=== PATIENT | female | born 1950 | race Caucasian/White ===

== ENCOUNTER → 2016-05-21 | Outpatient (CLI) | payer BC ==
[2016-05-21 12:13] LABS: Calcium 9.8 mg/dL (8.4-10.2)
== END | disposition home or self-care (01) ==
LOC: LABWHC1 08:33
PROVIDERS: ATTEND Family Medicine
DX: E03.9 Hypothyroidism, unspecified (principal)
CPT/HCPCS: 36415; 82310; 84439; 84443

== ENCOUNTER → 2016-05-21 | Outpatient (CLI) | payer BC ==
[2016-05-21 08:43] LABS: EKG EKG PERFORMED
[2016-05-21 09:27] LABS: Amorphous Sediment,Urine Rare /hpf; Appearance,Urine Cloudy (Clear); Bilirubin,Urine Negative (Negative); Glucose,Urine (UA) Negative (Negative); Ketones,Urine Negative (Negative); Leukocyte Esterase,Urine Negative (Negative); Mucus,Urine Rare /hpf; Nitrite,Urine Negative (Negative); Particle Count 7776; Protein,Urine Negative (Negative); RBC,Urine 5 /hpf (0-5); Specific Gravity,Urine 1.011 (1.001-1.035); Squamous Epithelial Cell,Urine <1 /hpf (0-4); UA Billing (MACRO vs. MICRO) MICRO; Urobilinogen,Urine <2.0 mg/dL (<2.0)
[2016-05-21 09:33] LABS: Partial Thromboplastin Time 24.8 sec (22.0-30.0); Prothrombin Time 9.9 sec (9.0-12.0)
[2016-05-21 09:37] LABS: Basophils % (A) 1 %; CH 30.9; CHCM 33.6; Eosinophils # (A) 0.2 k/uL (0-0.7); Eosinophils % (A) 4 %; HCT 40.1 % (34.0-46.0); HGB 13.2 gm/dL (11.4-16.0); Luc # (Auto) 0.18; Luc % (Auto) 4; Lymphocytes # (A) 1.7 k/uL (1.0-4.8); Lymphocytes % (A) 40 %; MCH 30.6 pg (25.0-35.0); MCV 92.6 fL (80.0-100.0); Mean Platelet Volume 6.8; Monocytes # (A) 0.4 k/uL (0-1.0); Monocytes % (A) 8 %; Neutrophils # (A) 1.9 k/uL (1.3-7.7); Neutrophils % (A) 43 %; RBC 4.33 m/uL (3.80-5.40); RDW 12.8 % (11.5-15.5); WBC 4.3 k/uL (3.8-10.6); WBC (Perox) 4.49
[2016-05-21 09:46] LABS: ALT 45 U/L (9-52); AST 27 U/L (14-36); Alkaline Phosphatase 68 U/L (38-126); Anion Gap 3 mmol/L; Blood Urea Nitrogen 14 mg/dL (7-17); Calcium 9.7 mg/dL (8.4-10.2); Carbon Dioxide 27 mmol/L (22-30); Chloride 105 mmol/L (98-107); Glucose 87 mg/dL (74-99); Non-African American GFR(MDRD) >60 (>60 ml/min/1.73 sqM); Potassium 4.7 mmol/L (3.5-5.1); Sodium 135 mmol/L (137-145); Total Bilirubin 0.7 mg/dL (0.2-1.3)
== END | disposition home or self-care (01) ==
LOC: LABPAT 08:30
PROVIDERS: ATTEND Orthopaedic Surgery
DX: Z01.810 Encounter for preprocedural cardiovascular examination (principal); Z01.812 Encounter for preprocedural laboratory examination
CPT/HCPCS: 36415; 80053; 81001; 85025; 85610; 85730; 87070; 93005

== ENCOUNTER 2016-06-04 09:04 | Inpatient (IN) | payer BC, OTHER ==
[2016-06-01 08:32] VITALS: BMI 30.2
[~2016-06-04 09:04] MED LIST: ACETAMINOPHEN TAB 500 MG TAB PO ONE; DEXAMETHASONE SOD PHOSPHATE 10 MG/ML 1 ML VIAL IV ONE; HYDROmorphone 1 MG/ML 1 ML SYRINGE IVP PRN; LACTATED RINGERS 1,000 ML IV SCH; MELOXICAM 7.5 MG TAB PO ONE; MIDAZOLAM 2 MG/2 ML VIAL IV PRN; ONDANSETRON 4 MG/2 ML VIAL IVP ONE; TRANEXAMIC ACID 1,000 MG in SODIUM CHLORIDE 0.9% 100 ML IVPB ONE; ceFAZolin 2 GM in SODIUM CHLORIDE 0.9% 100 ML IVPB ONE
[2016-06-04] MEDS ORDERED: LIDOCAINE 1% 20 ML VIAL (10MG/ML) FOR IV START INTRADERMA ONE (11:36)
[2016-06-04] MEDS ORDERED: ePHEDrine 50 MG/ML 1 ML AMP ONE (12:43)
[2016-06-04] MEDS ORDERED: MIDAZOLAM 2 MG/2 ML VIAL ONE (12:43)
[2016-06-04] MEDS ORDERED: ROCURONIUM BROMIDE 10 MG/ML 10 ML VIAL IV ONE (12:43)
[2016-06-04] MEDS ORDERED: SUCCINYLCHOLINE CHLORIDE 100 MG/5 ML SYR IV ONE (12:43)
[2016-06-04] MEDS ORDERED: HYDROmorphone (PF) 1 MG/ML ONE (12:43)
[2016-06-04] MEDS ORDERED: fentaNYL (PF) 50 MCG/ML 2 ML AMP ONE (12:43)
[2016-06-04] MEDS ORDERED: PROPOFOL 10 MG/ML 20 ML VIAL IV ONE (12:43)
[2016-06-04] MEDS: ROPIVACAINE 246.25 MG, EPINEPHrine 0.5 MG, KETOROLAC 30 MG, cloNIDine HCL/PF 80 MCG, WA... MISCELLANE ONE ×10 (13:51→14:46)
[2016-06-04] MEDS ORDERED: LACTATED RINGERS 1,000 ML IV ONE (13:52)
[2016-06-04] MEDS ORDERED: ceFAZolin 3,000 MG in SODIUM CHLORIDE 0.9% IRRIGATIO 3,000 ML IRRIGATION ONE (13:52)
[2016-06-04] MEDS ORDERED: ACETAMINOPHEN TAB 325 MG TAB PO PRN (15:32)
[2016-06-04] MEDS ORDERED: NALOXONE 0.4 MG/ML 1 ML VIAL IV PRN (15:32)
[2016-06-04] MEDS ORDERED: BISACODYL 10 MG SUPP RECTAL PRN (15:32)
[2016-06-04] MEDS ORDERED: NA PHOS,M-B/NA PHOS,DI-BA 133 ML ENEMA RECTAL PRN (15:32)
[2016-06-04] MEDS ORDERED: HYDROcodone/APAP 5-325MG 1 EACH TAB PO PRN (15:32)
[2016-06-04] MEDS ORDERED: MAGNESIUM HYDROXIDE 2,400 MG/10 ML CUP PO PRN (15:32)
[2016-06-04] MEDS ORDERED: HYDROmorphone 1 MG/ML 1 ML SYRINGE IVP PRN ×3 (15:32)
[2016-06-04] MEDS ORDERED: ONDANSETRON 4 MG/2 ML VIAL IVP PRN (15:32)
[2016-06-04] MEDS ORDERED: TEMAZEPAM 15 MG CAP PO PRN (15:32)
--- NOTE | 2016-06-04 16:17 | XR ---
EXAMINATION TYPE: XR knee limited LT DATE OF EXAM: 06/04/2016 4:05 PM COMPARISON: NONE HISTORY: Post knee replacement TECHNIQUE: 2 views left knee FINDINGS: Tibial and femoral components have been placed. Postsurgical changes are within soft tissue s. No acute fractures are evident. IMPRESSION: 1. No fractures post replacement.
[2016-06-04] MEDS: LACTATED RINGERS 1,000 ML IV SCH (17:08)
[2016-06-04] MEDS: HYDROcodone/APAP 5-325MG 1 EACH TAB PO PRN ×2 (17:57→23:19)
[2016-06-04] MEDS: hydrOXYzine PAMOATE 25 MG CAP PO PRN ×2 (17:58→23:20)
[2016-06-04] MEDS ORDERED: WARFARIN 5 MG TAB PO ONE (18:00)
--- NOTE | 2016-06-04 18:05 | P.OP ---
Date of Procedure: 06/04/16 Procedure(s) Performed: PREOPERATIVE DIAGNOSIS: Left knee severe osteoarthritis with genu varum POSTOPERATIVE DIAGNOSIS: Left knee severe osteoarthritis with genu varum OPERATION: Left knee cemented total replacement arthroplasty. ANESTHESIA: Spinal ESTIMATED BLOOD LOSS: 100 ml. CONFIGURATION MANAGEMENT ADVISOR: Darlin Adair PA-C (assistance with: patient positioning, retraction, exposure, hemostasis, leg positioning, implantation, irrigation, closure, dressing) COMPLICATIONS: None apparent. COMPONENTS IMPLANTED: Persona system from [employer] INDICATIONS: Mrs. Ceja is a 65-year-old female with a history of knee osteoarthritis. The operation of knee replacement has been discussed at length in the office, as well as potential risks and complications. These are inclusive of, but not limited to: bleeding, infection, scarring, discomfort, blood vessel and nerve damage, need for further surgery, failure to relieve symptoms, persistence, recurrence, or worsening of problems, loosening, dislocation, wear, blood clot, pulmonary embolism, , gait dysfunction, stiffness, and other risks as discussed in the office. The patient elects to proceed and the consent form has been signed. PROCEDURE: The patient was taken to the operating room and positioned on the operating room table in the supine position. Anesthesia was initiated. Care was taken to make sure that all pressure points were adequately padded. The operative lower extremity was prepped and draped in the usual aseptic fashion using DuraPrep. Ioban drape was used for the case and the patient received intravenous antibiotics within one hour of the incision. A pneumotourniquet and leg landin were used for the case. The limb was exsanguinated with an Esmarch bandage and the tourniquet was inflated to 300 mmHg. Time-out was called confirming the patient's identity, side, procedure and administration of antibiotics. The incision was then created midline directly over the knee, carried down through skin and into the subcutaneous tissues and down to fascia. Full thickness subcutaneous medial flap was developed. Medial parapatellar arthrotomy was performed and the interior of the knee was inspected. There was end-stage osteoarthritis of the knee with a severe genu varum type deformity. The fat pad was excised and proximal medial release on the tibia was completed using meticulous dissection and a curved osteotome. The anterior cruciate ligament was taken down. Note was made of significant attrition of the anterior and significant degenerative appearance of the posterior cruciate ligaments. The exposure was excellent. The knee was flexed 90 degrees and the patella was everted. A spot was chosen on the femur approximately 1 cm anterior to the posterior cruciate ligament insertion and an intramedullary hole was created within the femur. The intramedullary guide was then set to 5 degrees of valgus. The distal cutting block was attached and pinned into position. An appropriate amount of distal femoral resection was set. The oscillating saw was then used to make the distal femoral cut. This cut was confirmed to be flat with the flat end of an osteotome. The retractors were placed around the tibia and the tibial surface was addressed. The angle and depth of resection was adjusted using an extramedullary cutting guide. The guide had a built-in 3 degree posterior slope cut. Once the cutting guide was adjusted appropriately and in line with the axis of the tibia and confirmed to be in good position in relation to the second metatarsal and transmalleolar axis, the tibial cut was then created with protection of the posterior neurovascular structures and the collateral ligaments. The tibial cut surface was removed and sized. Femoral sizing was then accomplished using anterior referencing. Care was taken to analyze the posterior condyles for signs of deficiency or severe wear, and adjustments to the guide were made, as appropriate. 3 degree external rotation pins were placed. The cutting jig for the femur was applied to these pins. The planned cuts were further analyzed prior to performing them with the oscillating saw. No femoral notching was produced. Bone fragments were removed and the cut surfaces were finished, as necessary, with a reciprocating saw. Spacer block technique was then used to confirm that the flexion and extension gaps were equal. Soft tissue releases and adjustment of the tibial and/or femoral cuts were made, as necessary, until the gaps were equal. This included release of the posterior cruciate ligament, which was tight in this patient and , if left unreleased, would have resulted in poor kinematics and possibly early loosening. The femur was then further finished for a posterior cruciate ligament substituting component. Patellar resurfacing was performed using a reamer. The size of the required patellar component was estimated and the patellar surface was then reamed down to a residual thickness which would recreate the comanche thickness with the component. The placement of the patellar component was influenced by the degree of patellar subluxation, if any, noted on the preoperative x-rays. Prior to placing trial components, anesthetic solution consisting of ropivicaine with epinephrine, ketorolac, and clonidine was injected carefully and methodically in a grid pattern using aspiration technique into the soft tissue around the knee circumferentially, starting with the deeper tissues first and progressing to fascia, and then finally the skin/subcutaneous tissue. Particular care was taken when injecting the posterior capsule. The trial components were inserted. The tibial tray was allowed to self center and the patella was noted to track very well. The position of the tibial component was marked and the tibia was then finished for a stemmed tibial component. Cement was mixed on the back table and applied to the final components. Trial components were removed and the cut surfaces of the bone were pulse lavaged thoroughly and dried. Cement was then applied to the tibial surface and pressurized into the surface using finger pressurization technique. The tibial component was then applied and excess cement was removed after it was impacted securely and noted to be flush with the cut surface. In similar fashion, the cement was applied to the cut femoral surface, pressurized in using finger pressurization and the component was impacted into place. Excess cement was removed. The polyethylene spacer was then implanted and locked into position. The patellar component was then applied in similar technique and a patellar clamp was used to hold the patella in place as the cement hardened. Once the cement had fully hardened, the knee was reinspected. Any other cement extrusion was removed and final kinematic testing showed range of motion from 0 to 130 degrees with excellent stability, both medially and laterally and appropriate alignment of the leg. Patellar tracking was excellent. The knee was then thoroughly pulse lavaged with normal saline. The tourniquet was deflated and hemostasis was obtained with electrocautery and IV tranexamic acid, 1 g given prior to inflation of the tourniquet and another gram given at the time of closure. Closure was with #2 Ethibond in the fascia and supplemented with #2 Quill, 2-0 Vicryl suture was used for the subcutaneous tissues and 3-0 Quill for the skin. Dermabond/Steri-Strips were then applied. A lightly compressive dressing was applied using Webril and an Clark wrap. The patient was then transferred to stretcher and taken to the recovery room in stable condition. Sponge and needle counts were correct.
[2016-06-04] MEDS: ceFAZolin 2 GM in SODIUM CHLORIDE 0.9% 100 ML IVPB SCH (20:11)
[2016-06-04] MEDS: SENNOSIDES-DOCUSATE SODIUM 1 EACH TAB PO SCH (20:11)
[2016-06-05] MEDS: ceFAZolin 2 GM in SODIUM CHLORIDE 0.9% 100 ML IVPB SCH (05:22)
[2016-06-05] MEDS: hydrOXYzine PAMOATE 25 MG CAP PO PRN ×3 (05:24→20:41)
[2016-06-05] MEDS: HYDROcodone/APAP 5-325MG 1 EACH TAB PO PRN ×3 (05:24→20:40)
[2016-06-05] MEDS: LACTATED RINGERS 1,000 ML IV SCH ×2 (05:37→17:33)
[2016-06-05] MEDS: LEVOTHYROXINE 88 MCG TAB PO SCH ×2 (06:09)
[2016-06-05 06:47] LABS: Basophils % (A) 0 %; CH 30.8; CHCM 33.4; Eosinophils % (A) 0 %; HDW 2.43; HGB 11.2 gm/dL (11.4-16.0); Luc # (Auto) 0.14; Luc % (Auto) 1; Lymphocytes # (A) 1.2 k/uL (1.0-4.8); Lymphocytes % (A) 8 %; MCH 30.4 pg (25.0-35.0); MCHC 32.9 g/dL (31.0-37.0); MCV 92.6 fL (80.0-100.0); Mean Platelet Volume 6.4; Monocytes # (A) 0.8 k/uL (0-1.0); Monocytes % (A) 5 %; Neutrophils # (A) 13.1 k/uL (1.3-7.7); Neutrophils % (A) 86 %; RBC 3.67 m/uL (3.80-5.40); RDW 12.7 % (11.5-15.5); WBC 15.2 k/uL (3.8-10.6); WBC (Perox) 15.65
[2016-06-05 06:50] LABS: INR 1.2 (<1.1); Prothrombin Time 12.1 sec (9.0-12.0)
[2016-06-05] MEDS: MELOXICAM 7.5 MG TAB PO SCH (08:06)
[2016-06-05] MEDS: CHOLECALCIFEROL 1,000 UNIT TAB PO SCH (08:07)
[2016-06-05] MEDS ORDERED: LEVOTHYROXINE 88 MCG TAB PO SCH (09:00)
--- NOTE | 2016-06-05 09:04 | P.PN ---
Subjective Principal diagnosis: Left total knee arthroplasty Patient is pleasant 65-year-old female seen at bedside this morning. She's postop day #1 from left total knee arthroplasty performed by Dr. Lopez. She's doing well today other than some discomfort at the surgical site as expected and some episodes of hypotension. She is denying calf pain, numbness, tingling. Review of systems is negative for fever, chills, chest pain, shortness breath, cough, nausea, vomiting, slurred speech or other. Objective - Vital Signs Vital signs: Vital Signs Temp 97.6 F 06/05/16 02:04 Pulse 69 06/05/16 02:04 Resp 16 06/05/16 02:04 BP 88/47 06/05/16 07:00 Pulse Ox 92 L 06/05/16 02:04 Intake & Output 06/04/16 06/05/16 06/05/16 18:59 06:59 18:59 Intake Total 2601 800 Output Total 100 Balance 2501 800 Weight 84.82 kg Intake: IV 1801 Oral 800 800 Output: Estimated Blood Loss 100 Other: Voiding Method Toilet Toilet # Voids 1 - Exam Inspection of left lower extremity reveals a benign surgical wound. There is no active bleeding, dehiscence or drainage. Neurovascular status intact with active motor and sensation to light touch is intact throughout the left lower extremity. Calf is soft and nontender. 2+ dorsalis pedis pulses and less than 2 second cap refill is present. - Constitutional General appearance: Present: no acute distress - Psychiatric Psychiatric: Present: A&O x's 3, appropriate affect, intact judgment & insight - Labs CBC & Chem 7: 06/05/16 06:13 Labs: Abnormal Lab Results - Last 24 Hours (Table) 06/05/16 06/05/16 Range/Units 06:13 06:13 WBC 15.2 H (3.8-10.6) k/uL RBC 3.67 L (3.80-5.40) m/uL Hgb 11.2 L (11.4-16.0) gm/dL Neutrophils # 13.1 H (1.3-7.7) k/uL PT 12.1 H (9.0-12.0) sec Assessment and Plan (1) Osteoarthritis of left knee Narrative/Plan: She will continue with routine postop orthopedic protocol including pain management, wound care, physical therapy, DVT prophylaxis and medical management. She had some episodes of hypotension which she is currently stable. Expect that she'll discharge to home with home health tomorrow, 2016 Status: Acute Time with Patient: Less than 30
[2016-06-05] MEDS ORDERED: DOCUSATE 100 MG CAP PO PRN (10:54)
--- NOTE | 2016-06-05 11:55 | CONS ---
DATE OF CONSULTATION: 06/05/2016 REASON FOR CONSULTATION: Medical management requested by Dr. Lopez. CONSULTATION: This is a pleasant 65-year-old patient of Dr. Vance who has undergone a left total knee arthroplasty. The patient also has got osteoarthritis in the shoulder, rotator cuff and also got a hypothyroid. POST PROCEDURE: No nausea, vomiting, or chest pain. REVIEW OF SYSTEMS: CONSTITUTIONAL: None. HEENT: None. RESPIRATORY: None. CARDIOVASCULAR: None. GASTROINTESTINAL: None. GENITOURINARY: None. MUSCULOSKELETAL: Pain in the right shoulder also. DERMATOLOGIC: None. HEMATOLOGIC: None. LYMPHATIC: None. PSYCHIATRY: None. NEUROLOGICAL: None. PAST MEDICAL HISTORY: Osteoarthritis, hypothyroid. PAST SURGICAL HISTORY: Joint replacement, tubal ligation, right knee replaced. SOCIAL HISTORY: No smoking. Alcohol rarely. . Family history of DVT. HOME MEDICATIONS: Coumadin, vitamin B complex 1 capsule p.o. daily, Centrum Silver 1 tablet p.o. daily, Synthroid 88 mcg a day, Motrin 800 mg p.o. q.6 p.r.n., Colace 100 mg daily p.r.n., vitamin D3 two thousand units p.o. daily, Coumadin, Senokot-S 1 tablet p.o. b.i.d., [place] 5 one to two tablets q.4 p.r.n. ALLERGIES: TETRACYCLINE, ZINC. On examination, temperature 97.6, pulse 69, respirations 18, blood pressure 92/46, pulse ox 92% on room air. Repeat blood pressures go down to 88/42. GENERAL APPEARANCE: Well built, BMI 30.2, sitting up, comfortable. EYES: Pupils equal, conjunctivae normal. HEENT: Oral cavity normal. NECK: JVD not raised. Mass not palpable. Respiratory effort normal. LUNGS: Fair air entry. CARDIOVASCULAR: First and second sounds normal. No edema. ABDOMEN: Soft, nontender. Liver and spleen not palpable. LYMPHATIC: No lymph node palpable neck or axillae. PSYCHIATRY: Alert and oriented x3. Mood and affect normal. NEUROLOGICAL: Pupils equal. Cranial nerves grossly intact. Power and sensation grossly intact. INVESTIGATIONS: White count 15.2, hemoglobin 11.2. ASSESSMENT: 1. Postoperative hypotension from blood loss as expected from surgery. 2. Normocytic anemia with blood loss as expected from surgery. 3. Leukocytosis, reactive from surgery. No clinical evidence of infection. 4. Hypothyroidism. PLAN: Patient's medication getting for DVT prophylaxis. Pain is controlled. Blood pressure is running on the lower side. Will give the patient IV fluids. Care was discussed with the patient.
[2016-06-05] MEDS: MULTIVITAMINS, THERA 1 EACH TAB PO SCH (13:40)
[2016-06-05] MEDS ORDERED: WARFARIN 7.5 MG TAB PO ONE (18:00)
[2016-06-05] MEDS: SENNOSIDES-DOCUSATE SODIUM 1 EACH TAB PO SCH (20:41)
[2016-06-06] MEDS: LACTATED RINGERS 1,000 ML IV SCH ×2 (01:48→03:29)
[2016-06-06] MEDS: hydrOXYzine PAMOATE 25 MG CAP PO PRN ×3 (01:50→13:20)
[2016-06-06] MEDS: HYDROcodone/APAP 5-325MG 1 EACH TAB PO PRN ×3 (01:50→13:20)
[2016-06-06] MEDS: LEVOTHYROXINE 88 MCG TAB PO SCH (06:04)
[2016-06-06 07:24] LABS: INR 1.5 (<1.1); Prothrombin Time 14.4 sec (9.0-12.0)
[2016-06-06] MEDS: CHOLECALCIFEROL 1,000 UNIT TAB PO SCH (07:28)
[2016-06-06] MEDS: MELOXICAM 7.5 MG TAB PO SCH (07:28)
[2016-06-06 07:40] VITALS: BP 116/54; PULSE 56; RESP 18; TEMP 98
--- NOTE | 2016-06-06 08:32 | P.DS ---
Providers Date of admission: 06/04/16 10:56 Expected date of discharge: 06/06/16 Attending physician: Warner Lopez Consults: 06/04/16 15:32 Consult Physician Routine Consulting Provider: Parminder Carreno Consult Reason/Comments: medical management Do you want consulting provider notified?: Yes Primary care physician: Carlito Vance - Discharge Diagnosis(es) (1) Status post total left knee replacement Current Visit: Yes Status: Acute (2) Osteoarthritis of left knee Current Visit: Yes Status: Acute Priority: Medium Hospital Course: This is a 65-year-old female who was last seen with complaint of continued left knee pain. The patient has a known history of degenerative arthritis of the left knee and presents to discuss surgical options. After discussion and consideration the patient elects to proceed with total left knee arthroplasty. The patient is seen preoperatively by her family physician and cleared for surgery. The patient is admitted to [facility] for total left knee arthroplasty. The procedures performed without complication or sequelae. He is doing well postoperatively. Vital signs are stable at discharge. Labs are stable at discharge. the patient is ambulating well with walker with minimal assistance. The patient is discharged to home on postop day #2 pending medical clearance. Please see orders and refer to the [facility] rec for accurate list of medications. Plan - Discharge Summary New Discharge Prescriptions: HYDROcodone/APAP 5-325MG [[place] 5-325] 1 - 2 each PO Q4-6H PRN #90 tab PRN Reason: Pain Sennosides-Docusate Sodium [Senokot-S] 1 tab PO BID #60 tablet Warfarin [Coumadin] 2.5 mg PO DAILY #1 tab hydrOXYzine PAMOATE [Vistaril] 25 mg PO Q4-6H #30 capsule Discharge Medication List Cholecalciferol [Vitamin D3] 2,000 unit PO DAILY 06/01/16 [History] Docusate [Colace] 100 mg PO DAILY PRN 06/01/16 [History] Ibuprofen [Motrin] 800 mg PO Q6HR PRN 06/01/16 [History] Levothyroxine Sodium [Synthroid] 88 mcg PO DAILY 06/01/16 [History] Multivits-Min/Iron/FA/Lutein [Centrum Silver Women Tablet] 1 tab PO DAILY [History] Vitamin B Complex 1 cap PO DAILY 06/01/16 [History] HYDROcodone/APAP 5-325MG [[place] 5-325] 1 - 2 each PO Q4-6H PRN #90 tab 06/04/16 [Rx] Sennosides-Docusate Sodium [Senokot-S] 1 tab PO BID #60 tablet 06/04/16 [Rx] Warfarin [Coumadin] 2.5 mg PO DAILY 06/04/16 [History] Warfarin [Coumadin] 2.5 mg PO DAILY #1 tab 06/04/16 [Rx] Warfarin [Coumadin] 7.5 tab PO ONCE 06/04/16 [History] hydrOXYzine PAMOATE [Vistaril] 25 mg PO Q4-6H #30 capsule 06/04/16 [Rx] Follow up Appointment(s)/Referral(s): Darlin Adair, PAC [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 May shower if no drainage from incision. CPM 5-6h daily. Discharge Disposition: HOME WITH HOME HEALTH SERVICES
[2016-06-06] MEDS: MULTIVITAMINS, THERA 1 EACH TAB PO SCH (13:24)
--- NOTE | 2016-06-07 07:30 | PN ---
DATE OF SERVICE: 06/06/2016 PRESENTING COMPLAINT: Left knee surgery. INTERVAL HISTORY: This patient was seen by me earlier today. Status post left knee surgery. Pain is better controlled. No chest pain, shortness of breath, nausea or vomiting. Did tolerate diet. Did work with physical therapy. Doing better. Review of systems done for constitutional, cardiovascular, GI, pulmonary; relevant findings as above. Current medications are reviewed. On examination, temperature 98, pulse 56, respirations 18, blood pressure 116/54, pulse ox 99% on room air. GENERAL APPEARANCE: Lying in bed, comfortable. EYES: Pupils equal. Conjunctivae normal. NECK: JVD not raised. Mass not palpable. RESPIRATORY: Effort normal. Lungs are clear. CARDIOVASCULAR: First and second sounds normal. No edema. ABDOMEN: Soft, nontender. Liver and spleen not palpable. PSYCHIATRY: Alert and oriented x3. Mood and affect normal. INVESTIGATIONS: INR is noted. ASSESSMENT: 1. Postoperative hypotension from blood loss expected from surgery, improved. 2. Normocytic anemia from blood loss as expected from surgery. 3. Leukocytosis reactive from surgery. No clinical evidence of infection. 4. Hypothyroidism. PLAN: Patient is doing well. Continue current medication and treatment plan. Will follow.
== END 2016-06-06 14:37 | disposition home health service (06) | DRG 470 ==
LOC: 2ORMAIN 10:56 → 3SUR 16:14
PROVIDERS: ADMIT Orthopaedic Surgery; ATTEND Orthopaedic Surgery
PROC: 0SRD0J9 Replacement of Left Knee Joint with Synthetic Substitute, Cemented, Open Approach (ICD-10-PCS; principal; 2016-06-04 12:30)
DX: M17.12 Unilateral primary osteoarthritis, left knee (principal); E03.9 Hypothyroidism, unspecified; D72.829 Elevated white blood cell count, unspecified; D50.0 Iron deficiency anemia secondary to blood loss (chronic); M21.162 Varus deformity, not elsewhere classified, left knee; M79.4 Hypertrophy of (infrapatellar) fat pad; M71.22 Synovial cyst of popliteal space [Baker], left knee; M72.2 Plantar fascial fibromatosis; I95.81 Postprocedural hypotension; M75.101 Unspecified rotator cuff tear or rupture of right shoulder, not specified as traumatic; M19.011 Primary osteoarthritis, right shoulder; E78.00 Pure hypercholesterolemia, unspecified; J45.909 Unspecified asthma, uncomplicated; Z86.11 Personal history of tuberculosis; Z86.19 Personal history of other infectious and parasitic diseases; Z87.81 Personal history of (healed) traumatic fracture; Z79.01 Long term (current) use of anticoagulants; Z79.1 Long term (current) use of non-steroidal anti-inflammatories (NSAID); Z79.891 Long term (current) use of opiate analgesic; Z79.899 Other long term (current) drug therapy; Z98.51 Tubal ligation status; Z90.710 Acquired absence of both cervix and uterus; Z90.722 Acquired absence of ovaries, bilateral; Z90.79 Acquired absence of other genital organ(s); Z82.49 Family history of ischemic heart disease and other diseases of the circulatory system; Z88.1 Allergy status to other antibiotic agents; Z88.8 Allergy status to other drugs, medicaments and biological substances; Z96.651 Presence of right artificial knee joint; Z82.5 Family history of asthma and other chronic lower respiratory diseases
CPT/HCPCS: 85025; 85610; 88300

== ENCOUNTER → 2017-05-22 | Outpatient (CLI) | payer OTHER ==
--- NOTE | 2017-05-22 10:02 | WWHP ---
[facility] - HISTORY AND PHYSICAL DATE OF SERVICE: 05/22/2017 CHIEF COMPLAINT: The patient is here for her routine gynecologic exam and mammogram. HPI: This is a 66-year-old G4, P4-0-0-2 with an LMP of 1999. The patient is here to establish with this office. It has been more than 4 years since her last pelvic exam. She is without gynecologic complaints and denies any postmenopausal bleeding. PAST MEDICAL HISTORY: Hypothyroidism. She was treated for tuberculosis in 1959 and has some osteoarthritis of the knees. MEDICATIONS: 1. Motrin 800 mg b.i.d. p.r.n. 2. Synthroid 88 mcg daily. 3. Vitamin D 2000 units daily. 4. Vitamin B complex 1 daily. 5. Centrum Silver multivitamin 1 daily. ALLERGIES: Allergies to ZINC METAL when it touches the skin. There are no known drug allergies. PAST SURGICAL HISTORY: Tonsillectomy at age 6, tubal ligation 1985, knee replacement surgery in 2009 and the other knee done in 2016, D and C in the past. PAST OB HISTORY: Four vaginal deliveries at term. PAST [employer]TH COURT JUDGE HISTORY: She has been menopausal since 1999 and was once told she had a uterine fibroid. She has no history of STDs. SOCIAL HISTORY: She denies tobacco and drug use and has about 4 alcohol-containing drinks per month. 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 FAMILY HISTORY: Maternal grandfather had gastric cancer. Father had COPD and coronary artery disease. Brother has type 1 diabetes. REVIEW OF SYSTEMS: Weight has been stable. She denies respiratory, cardiac or GI problems. She denies maltreatment and falling. : She denies any significant problems with urinary leakage. PHYSICAL EXAM: Blood pressure 131/61, height 5 feet 5 inches, weight 182 pounds, temperature 96.8, pulse 58, BMI 30. This is a well-developed, well-nourished, white female, who is alert and oriented x3, in no acute distress. HEENT is within normal limits. NECK: Supple without mass or thyromegaly. CHEST AND LUNGS: Clear to auscultation. HEART: Regular rate and rhythm. Breasts are without mass or discharge. Axillary exam is negative for adenopathy. BACK: Negative for CVA tenderness. ABDOMEN: Soft, nontender, without palpable masses. PELVIC EXAM: External genitalia reveals [id number] atrophy without lesions. Cervix and vagina reveals [id number] atrophy without lesions. There is no evidence of prolapse. The uterus is mid-position and slightly retroverted and nongravid size. The uterus is nontender. There are no palpable adnexal masses or tenderness. Rectovaginal exam is negative for mass or tenderness and is negative for occult blood. EXTREMITIES: Nontender. IMPRESSION: A 66-year-old menopausal female with normal gynecologic exam. PLAN: 1. Pap smear was performed. 2. Self breast examination was discussed. 3. Mammogram will be done today. 4. Osteoporosis prevention was discussed and bone density screening will be done today. 5. She did receive a flu shot this past fall. 6. She will return in one year. MMODL / IJN: [id number] /
--- NOTE | 2017-05-22 11:14 | BD ---
EXAMINATION TYPE: MG DEXA axial skeleton. DATE OF EXAM: 05/22/2017 COMPARISON: 2007 CLINICAL HISTORY: screening Height: 5'3 Weight: 181 FRAX RISK QUESTIONS: Alcohol (3 or more units per day): no Family History (Parent hip fracture): no Glucocorticoids (More than 3mos): no (Ex: prednisone, prednisolone, methylprednisolone, dexamethasone, and hydrocortisone). History of Fracture in Adulthood: yes Secondary Osteoporosis: 1. Type 1 Diabetes: no 2. Hyperthyroidism: no 3. Menopause before 45: no 4. Malnutrition: no 5. Chronic liver disease: no Rheumatoid Arthritis: no Current Tobacco Use: no RISK FACTORS HISTORY OF: Postmenopausal woman: Lost more than 2 inches in height since high school: MEDICATIONS: Thyroid Medications: Which medication: Synthroid How Lon years Additional Medications: Motrin, Additional History: EXAM MEASUREMENTS: Bone mineral densitometry was performed using the [employer]ighter[employer] System. Bone mineral density as measured about the Lumbar spine is: ----- L1-L4(G/cm2): 1.176 T Score Values are as follows: ----- L2: -0.3 ----- L3: -0.3 ----- L4: 0.9 ----- L1-L4:0.0 Bone mineral density has: Decreased -4.8% since study of: 02/15/2003 Bone mineral density about the R hip (g/cm2): 0.815 Bone mineral density about the L hip (g/cm2): 0.791 T Score values are as follows: -----R Neck: -1.6 -----L Neck: -1.8 -----R Total: -1.4 -----L Total: -1.2 Bone mineral density has: Decreased -14.7% since study of: 02/15/2003 IMPRESSION: Osteopenia (T Score between -2.5 and -1). There is slightly increased risk of fracture and the patient may be considered for treatment. Re-Screen 2-5 years. NOTE: T-SCORE=SD OF THE YOUNG ADULT MEAN.
--- NOTE | 2017-05-23 13:03 | MM ---
Reason for exam: screening (asymptomatic). Last mammogram was performed 7 years and 5 months ago. History: Patient is postmenopausal. Physical Findings: A clinical breast exam by your physician is recommended on an annual basis and results should be correlated with mammographic findings. MG Screening Mammo w CAD Bilateral CC and MLO view(s) were taken. Prior study comparison: December 14, 2009, bilateral digital screening mammogram. May 10, 2008, bilateral digital screening mammogram. The breast tissue is heterogeneously dense. This may lower the sensitivity of mammography. There is no discrete abnormality. No significant changes when compared with prior studies. ASSESSMENT: Negative, BI-RAD 1 RECOMMENDATION: Routine screening mammogram of both breasts in 1 year.
== END | disposition home or self-care (01) ==
LOC: WWCWWP 08:44
PROVIDERS: ATTEND Obstetrics & Gynecology
DX: Z12.31 Encounter for screening mammogram for malignant neoplasm of breast (principal); M85.80 Other specified disorders of bone density and structure, unspecified site; Z78.0 Asymptomatic menopausal state
CPT/HCPCS: 77067; 77080

== ENCOUNTER 2018-12-02 11:27 | Emergency (ER) | payer BC, OTHER ==
[2018-12-02] MEDS ORDERED: IPRATROPIUM-ALBUTEROL 3 ML NEB INHALATION STA (11:57)
[2018-12-02] MEDS ORDERED: ACETAMINOPHEN TAB 500 MG TAB PO STA (11:58)
[2018-12-02] MEDS ORDERED: IBUPROFEN 800 MG TAB PO STA (11:58)
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
[2018-12-02 13:38] VITALS: BP 111/59; PULSE 65; RESP 17; TEMP 98.8
== END 2018-12-02 13:38 | disposition home or self-care (01) ==
LOC: EC 11:27
DX: S20.219A Contusion of unspecified front wall of thorax, initial encounter (principal); J20.9 Acute bronchitis, unspecified; M19.90 Unspecified osteoarthritis, unspecified site; E07.9 Disorder of thyroid, unspecified; Z88.1 Allergy status to other antibiotic agents; Z91.048 Other nonmedicinal substance allergy status; Z79.1 Long term (current) use of non-steroidal anti-inflammatories (NSAID); Z79.890 Hormone replacement therapy; Z79.899 Other long term (current) drug therapy; Z96.651 Presence of right artificial knee joint; Z87.09 Personal history of other diseases of the respiratory system; V49.49XA Driver injured in collision with other motor vehicles in traffic accident, initial encounter; W22.10XA Striking against or struck by unspecified automobile airbag, initial encounter; Y92.410 Unspecified street and highway as the place of occurrence of the external cause
CPT/HCPCS: 71046; 94640; 99284

== ENCOUNTER → 2019-06-02 | Outpatient (CLI) | payer BC ==
[2019-06-02 13:14] VITALS: BP 142/82; PULSE 62; RESP 18; TEMP 97.6
--- NOTE | 2019-06-02 13:45 | P.HPOB ---
History of Present Illness H&P Date: 06/02/19 Chief Complaint: The patient is here for her routine gynecologic exam and ma mmogram. This is a 68-year-old 002 with an LMP of 1999. The patient is complaining of some vaginal dryness with sexual intercourse. Inlk-ull-bbxgbnn lubricant was not helpful. She is otherwise without complaints and denies any postmenopausal bleeding. Review of Systems The patient has gained 10 pounds over the last 2 years. She denies respiratory, cardiac, or G.I. problems. 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 She was once told she had a uterine fibroid. History of Any Multi-Drug Resistant Organisms: None Reported Past Surgical History: Joint Replacement, Tonsillectomy, Tubal Ligation Additional Past Surgical History / Comment(s): right knee replaced Past Anesthesia/Blood Transfusion Reactions: No Reported Reaction Past Psychological History: No Psychological Hx Reported Smoking Status: Never smoker Past Alcohol Use History: Occasional (1 or 2 per month) Past Drug Use History: None Reported Additional History: She has been since 1973 and is sexually active. 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. - Past Family History Mother Family Medical History: Deep Vein Thrombosis (DVT) Additional Family Medical History / Comment(s): Maternal grandfather had gastric cancer. Father Family Medical History: COPD, Coronary Artery Disease (CAD) Brother(s) Family Medical History: Diabetes Mellitus Medications and Allergies Home Medications Medication Instructions Recorded Confirmed Type Cholecalciferol [Vitamin D3] 2,000 unit PO DAILY 06/01/16 06/02/19 History Levothyroxine Sodium [Synthroid] 88 mcg PO DAILY 06/01/16 06/02/19 History Multivit-Min/Iron/Folic/Lutein 1 tab PO DAILY 06/01/16 06/02/19 History [Centrum Silver Women Tablet] Vitamin B Complex 1 cap PO DAILY 06/01/16 06/02/19 History Albuterol Sulfate [Proair Hfa] 1 - 2 puff INHALATION Q4H PRN #1 12/02/18 06/02/19 Rx inhaler Ibuprofen [Motrin] 800 mg PO BID PRN 12/02/18 06/02/19 History Terbinafine [LamISIL] 250 mg PO DAILY 12/02/18 06/02/19 History Calcium/Magnesium/Zinc 1 each PO DAILY 06/02/19 06/02/19 History [Kjplddm-Wnrevfvru-Zvdu Tablet] Allergies Allergy/AdvReac Type Severity Reaction Status Date / Time Tetracyclines AdvReac always Verified 06/02/19 13:09 causes yeast infections zinc AdvReac Unknown Verified 06/02/19 13:09 Exam Vital Signs Temp Pulse Resp BP Pulse Ox 06/02/19 13:11 97.6 F 62 18 142/82 99 Intake and Output 06/01/19 06/02/19 06/02/19 22:59 06:59 14:59 Other: Weight 87.09 kg Height 5 feet 3 inches, weight 192 pounds, BMI 34.0. This is a well-developed well-nourished white female who is alert and oriented times 3 in no acute distress. HEENT: Within normal limits. NECK: Supple without mass or thyromegaly. CHEST AND LUNGS: Clear to auscultation. HEART: Regular rate and rhythm. BREASTS: Are without mass or discharge. AXILLARY EXAM: Negative for adenopathy. BACK: Negative for CVA tenderness. ABDOMEN: Soft, nontender, without palpable masses. PELVIC EXAM: Normal external genitalia with mild to moderate atrophy. Cervix and vagina appear normal with mild to moderate atrophy. There is no unusual discharge. There is no evidence of prolapse. The uterus is midposition, nongravid size and nontender. There are no palpable adnexal masses or tenderness. RECTAL EXAM: Rectovaginal exam is negative for mass or tenderness and is negative for occult blood. EXTREMITIES: Nontender. IMPRESSION: 1. 68-year-old menopausal female with normal gynecologic exam. 2. Vaginal dryness with sexual intercourse secondary to genital atrophy. 3. History of osteopenia 4. Mildly elevated blood pressure. PLAN: 1. Pap smear was performed. The only other Pap smear we have documented was from 2018. We will continue Pap smears every 2-3 years until we have 3 normal ones. We will then consider discontinuing Pap smears at that time. 2. Self breast awareness was discussed with the patient. 3. Screening mammogram will be done today. 4. Her blood pressure elevation was discussed. She states she will check her own blood pressure on a regular basis since she has a blood pressure cuff. She will follow-up with Dr. Vance for blood pressure elevations. 5. Osteoporosis prevention was discussed. I have stressed the importance of adequate calcium, vitamin D and regular exercise. Recommended amounts of calcium and vitamin D were also discussed. We will plan on repeating bone density testing at her next well woman appointment. Her last bone density test was done on 05/22/2017. 6. Trial of Premarin vaginal cream, 1 g intravaginally 2 times weekly. The electronic prescription will be sent to [facility] pharmacy on [facility]. 7. The patient was advised to return in 1-2 years for her well woman examination.
--- NOTE | 2019-06-04 15:00 | MM ---
Reason for exam: screening (asymptomatic). Last mammogram was performed 2 years ago. History: Patient is postmenopausal. Physical Findings: A clinical breast exam by your physician is recommended on an annual basis and results should be correlated with mammographic findings. MG Screening Mammo w CAD Bilateral CC and MLO view(s) were taken. Prior study comparison: May 22, 2017, bilateral MG screening mammo w CAD. December 14, 2009, bilateral digital screening mammogram. There are scattered fibroglandular densities. Dense lymph nodes left axilla. This finding is changed when compared with previous exams. ASSESSMENT: Probably benign, BI-RAD 3 RECOMMENDATION: Follow-up diagnostic mammogram of the left breast in 6 months. Manage on a clinical basis with regard to questionable left axillary lymph nodes.
== END | disposition home or self-care (01) ==
LOC: WWCWWP 13:00
PROVIDERS: ATTEND Obstetrics & Gynecology
DX: Z12.31 Encounter for screening mammogram for malignant neoplasm of breast (principal)
CPT/HCPCS: 77067

== ENCOUNTER → 2020-01-15 | Outpatient (CLI) | payer OTHER ==
--- NOTE | 2020-01-15 19:19 | CT ---
EXAMINATION TYPE: CT wrist RT wo con DATE OF EXAM: 01/15/2020 COMPARISON: None HISTORY: Right wrist fx TECHNIQUE: Axial imaging of the right wrist was obtained without the use of intravenous contrast. Cor onal and sagittal reformatted images were generated. Three-dimensional images were generated and util ized on a separate workstation. CT DLP: 108.8 mGycm Automated exposure control for dose reduction was used. FINDINGS: There is a comminuted mildly displaced intra-articular fracture of the distal radius involving the me taphysis and epiphysis, extending to the radiocarpal joint space and the distal radioulnar joint. The re is mild impaction and very minimal volar angulation of the distal fracture fragment. There is a mi nimally displaced fracture of the ulnar styloid. Joint spaces are maintained. There is posterior arth ritic degenerative change at the first carpometacarpal joint is normal osseous mineralization. Myofas cial planes are maintained. No significant soft tissue swelling. Three-dimensional images consistent with the above findings. IMPRESSION: 1. COMMINUTED MILDLY DISPLACED DISTAL RADIAL INTRA-ARTICULAR FRACTURE ABOVE. 2. MILDLY DISPLACED FRACTURE OF THE ULNAR STYLOID.
== END | disposition home or self-care (01) ==
LOC: RADCTMAIN 15:19
PROVIDERS: ATTEND Orthopaedic Surgery
DX: S52.571A Other intraarticular fracture of lower end of right radius, initial encounter for closed fracture (principal); S52.611A Displaced fracture of right ulna styloid process, initial encounter for closed fracture

== ENCOUNTER → 2020-02-09 | Outpatient (CLI) | payer BC ==
--- NOTE | 2020-02-09 12:30 | MM ---
Reason for exam: follow-up at short interval from prior study. Last mammogram was performed 8 months ago. History: Patient is postmenopausal. Taking estrogen for 6 months. Taking progesterone for 6 months. Physical Findings: Nurse did not find any significant physical abnormalities on exam. MG Diagnostic Mammo LT w CAD CC and MLO view(s) were taken of the left breast. Prior study comparison: June 02, 2019, bilateral MG screening mammo w CAD. May 22, 2017, bilateral MG screening mammo w CAD. There are scattered fibroglandular densities. These results were verbally communicated with the patient and result sheet given to the patient on 02/09/20. ASSESSMENT: Incomplete: need additional imaging evaluation, BI-RAD 0 RECOMMENDATION: Ultrasound of the left breast. (axilla)
--- NOTE | 2020-02-09 12:32 | USB ---
Reason for exam: additional evaluation requested from abnormal screening. History: Patient is postmenopausal. Taking estrogen for 6 months. Taking progesterone for 6 months. US Breast Axilla LT Left breast axilla ultrasound demonstrates a 1.1 x 1.2 x 1.0cm lymph node at the axilla, two prominent but nonenlarged nodes corresponding to the stable mammographic findings. Additional 6 month follow up mammogram recommended. Scanned only axilla. These results were verbally communicated with the patient and result sheet given to the patient on 02/09/20. ASSESSMENT: Probably benign, BI-RAD 3 RECOMMENDATION: Follow-up diagnostic mammogram of both breasts in 6 months.
== END | disposition home or self-care (01) ==
LOC: RADMAMWWP 10:14
PROVIDERS: ATTEND Obstetrics & Gynecology
DX: R92.8 Other abnormal and inconclusive findings on diagnostic imaging of breast (principal)
CPT/HCPCS: 77065

== ENCOUNTER → 2020-06-28 | Outpatient (CLI) | payer BC ==
[2020-06-28 11:04] VITALS: BP 163/84; PULSE 57; RESP 18; TEMP 97.7
--- NOTE | 2020-06-28 11:49 | P.HPOB ---
History of Present Illness H&P Date: 06/28/20 Chief Complaint: The patient is here for her routine gynecologic exam and ma mmogram. This is a 69-year-old with an LMP of 1999. The patient is without gynecologic complaints. She states she still is using vaginal estrogen cream which has been very helpful for vaginal dryness associated with sexual intercourse. Review of Systems She is been about 3 pounds over the past year. She denies respiratory, cardiac and G.I. problems. She denies maltreatment. She did have a fall that resulted in a wrist injury that required surgery. : she denies any significant problems with urinary leakage. 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 She was once told she had a uterine fibroid. History of Any Multi-Drug Resistant Organisms: None Reported Past Surgical History: Joint Replacement, Orthopedic Surgery, Tonsillectomy, Tubal Ligation Additional Past Surgical History / Comment(s): right knee replaced. Right Wrist surgery. Past Anesthesia/Blood Transfusion Reactions: No Reported Reaction Past Psychological History: No Psychological Hx Reported Smoking Status: Never smoker Past Alcohol Use History: Occasional (0-2 per month) Past Drug Use History: None Reported Additional History: She has been since 1973 and is sexually active. 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 - Past Family History Mother Family Medical History: Deep Vein Thrombosis (DVT) Additional Family Medical History / Comment(s): Maternal grandfather had gastric cancer. Father Family Medical History: COPD, Coronary Artery Disease (CAD) Brother(s) Family Medical History: Diabetes Mellitus Medications and Allergies Home Medications Medication Instructions Recorded Confirmed Type Cholecalciferol [Vitamin D3] 2,000 unit PO DAILY 06/01/16 06/28/20 History Levothyroxine Sodium [Synthroid] 88 mcg PO DAILY 06/01/16 06/28/20 History Multivit-Min/Iron/Folic/Lutein 1 tab PO DAILY 06/01/16 06/28/20 History [Centrum Silver Women Tablet] Vitamin B Complex 1 cap PO DAILY 06/01/16 06/28/20 History Ibuprofen [Motrin] 800 mg PO BID PRN 12/02/18 06/28/20 History Calcium/Magnesium/Zinc 1 each PO DAILY 06/02/19 06/28/20 History [Oldwmab-Vluqqzsgy-Wrag Tablet] Estrogens, Conjugated Cream 1 gm VAGINAL DIRECTED #1 tube 06/02/19 06/28/20 Rx [Premarin Cream] Allergies Allergy/AdvReac Type Severity Reaction Status Date / Time Tetracyclines AdvReac always Verified 06/28/20 10:56 causes yeast infections zinc AdvReac Unknown Verified 06/28/20 10:56 Exam Vital Signs Temp Pulse Resp BP Pulse Ox 06/28/20 10:58 97.7 F 57 L 18 163/84 97 Intake and Output 06/27/20 06/28/20 06/28/20 22:59 06:59 14:59 Other: Weight 88.451 kg Height 5 feet 3 inches, weight 195 pounds, BMI 34.5. This is a well-developed well-nourished white female who is alert and oriented times 3 in no acute distress. HEENT: Within normal limits. NECK: Supple without mass or thyromegaly. CHEST AND LUNGS: Clear to auscultation. HEART: Regular rate and rhythm. BREASTS: Are without mass or discharge. AXILLARY EXAM: Negative for adenopathy. BACK: Negative for CVA tenderness. ABDOMEN: Soft, nontender, without palpable masses. PELVIC EXAM: Normal external genitalia with mild to moderate atrophy. Cervix and vagina appear normal with mild to moderate atrophy. There is no unusual discharge. There is a grade 2 rectocele. There is no other significant prolapse noted. The uterus is midposition, nongravid size and nontender. There are no palpable adnexal masses or tenderness. RECTAL EXAM: Rectovaginal exam is negative for mass or tenderness and is negative for occult blood and confirms a grade 2 rectocele. EXTREMITIES: Nontender. IMPRESSION: 1. 69-year-old menopausal female with an asymptomatic grade 2 rectocele. 2. Doing well on vaginal estrogen cream used for vaginal dryness associated with sexual intercourse 3. History of osteopenia. 4. Elevated blood pressure. 5. Previous abnormal mammogram. PLAN: 1. Pap smear was deferred since she had a normal one on 06/02/2019. We will plan on repeating this at her next well woman visit. If that one is negative we can consider discontinuing Pap smears since she would then have 3 negative Pap smears within a 10 year period. 2. Self breast awareness was discussed with the patient. 3. Diagnostic mammogram will be done today. Her last bilateral screening mammogram did require a left breast workup and 6 month follow-up which was probably benign. 4. Osteoporosis prevention was discussed. I have stressed the importance of adequate calcium, vitamin D and regular exercise. Recommended amounts of calcium and vitamin D were also discussed. Bone density testing will be done today. 5. Continue estradiol vaginal cream 1 g into the vagina twice weekly. The electronic prescription will be sent to [facility] pharmacy on [address]. 6. We have discussed her elevated blood pressure. She states she does have a weight check her own blood pressure. I have recommended that she check her own blood pressure on a regular basis and follow-up with Dr. Vance for blood pressure elevations. 7. She did receive her flu shot last fall and has received 1 out of 2 Covid vaccinations. She does have an appointment for her second vaccination. 8. We have discussed her grade 2 rectocele. I have recommended that she avoid holding stool longer than necessary. The ACOG FAQ handout on pelvic relaxation was given to the patient. She will call if she has problems with this. 9. She was advised to return in one year for her annual well woman exam.
--- NOTE | 2020-06-28 14:51 | MM ---
Reason for exam: additional evaluation requested from prior study. Last mammogram was performed 5 months ago. History: Patient is postmenopausal. Taking estrogen for 6 months. Taking progesterone for 6 months. Physical Findings: Dr. Tony did breast exam. MG Diagnostic Mammo w CAD PRATEEK Bilateral CC and MLO view(s) were taken. Prior study comparison: February 09, 2020, left breast MG diagnostic mammo LT w CAD. June 02, 2019, bilateral MG screening mammo w CAD. May 22, 2017, bilateral MG screening mammo w CAD. There are scattered fibroglandular densities. No significant new findings when compared with previous films. These results were verbally communicated with the patient and result sheet given to the patient on 06/28/20. ASSESSMENT: Benign, BI-RAD 2 RECOMMENDATION: Routine screening mammogram of both breasts in 1 year.
--- NOTE | 2020-06-28 16:12 | BD ---
EXAMINATION TYPE: Axial Bone Density DATE OF EXAM: 06/28/2020 COMPARISON: NONE CLINICAL HISTORY: Postmenopausal Height: 5 FT 3 IN Weight: 195 FRAX RISK QUESTIONS: Alcohol (3 or more units per day): NO Family History (Parent hip fracture): NO Glucocorticoids (More than 3mos): NO (Ex: prednisone, prednisolone, methylprednisolone, dexamethasone, and hydrocortisone). History of Fracture in Adulthood: YES Secondary Osteoporosis: 1. Type 1 Diabetes: NO 2. Hyperthyroidism: NO 3. Menopause before 45: NO 4. Malnutrition: NO 5. Chronic liver disease: NO Rheumatoid Arthritis: NO Current Tobacco Use: NO RISK FACTORS HISTORY OF: History of Wrist Fracture: RT WRIST When: 2019 Surgery to Spine/Hip(right/left)/Wrist (right/left): RT WRIST When: 2020 Family History of Osteoporosis: UNSURE Active: YES Diet low in dairy products/other sources of calcium: NO Postmenopausal woman: AROUND AGE 46 Take estrogen and/or progesterone medications: VAGINAL CREAM PRESENTLY Lost more than 2 inches in height since high school: YES MEDICATIONS: Thyroid Medications: YES Which medication: SYNTHROID How Long: APPROX 15 -20 YEARS Additional Medications: MOTRIN 800, SYNTHROID, Additional History: EXAM MEASUREMENTS: Bone mineral densitometry was performed using the [email or web address] System. Bone mineral density as measured about the Lumbar spine is: ----- L1-L4(G/cm2): 1.309 T Score Values are as follows: ----- L2: 1.0 ----- L3: 0.9 ----- L4: 1.9 ----- L1-L4: 1.1 Bone mineral density has: INCREASED 12.1 % since study of: 2017 Bone mineral density about the R hip (g/cm2): 0.848 Bone mineral density about the L hip (g/cm2): 0.813 T Score values are as follows: -----R Neck: -1.4 -----L Neck: -1.6 -----R Total: -0.9 -----L Total: -1.3 Bone mineral density has: INCREASED 3.8 % since study of: 2017 IMPRESSION: Osteopenia (T Score between -2.5 and -1). There is slightly increased risk of fracture and the patient may be considered for treatment. Re-Screen 2-5 years. NOTE: T-SCORE=SD OF THE YOUNG ADULT MEAN.
== END ==
LOC: WWCWWP 10:45
PROVIDERS: ATTEND Obstetrics & Gynecology
DX: N81.6 Rectocele (principal); R03.0 Elevated blood-pressure reading, without diagnosis of hypertension; M19.90 Unspecified osteoarthritis, unspecified site; E03.9 Hypothyroidism, unspecified; Z79.890 Hormone replacement therapy; Z79.1 Long term (current) use of non-steroidal anti-inflammatories (NSAID); Z79.899 Other long term (current) drug therapy; Z87.39 Personal history of other diseases of the musculoskeletal system and connective tissue
CPT/HCPCS: 77066; 77080

== ENCOUNTER → 2022-07-03 | Outpatient (CLI) | payer BC ==
[2022-07-03 09:43] VITALS: BP 133/79; PULSE 63; RESP 17; TEMP 98.4
--- NOTE | 2022-07-03 10:42 | P.HPOB ---
History of Present Illness H&P Date: 07/03/22 Chief Complaint: The patient is here for her routine gynecologic exam and ma mmogram. This is a 71-year-old 002 with an LMP of 1999. The patient is without gynecologic complaints and denies any postmenopausal bleeding. She is sexually active and has been using vaginal estrogen cream which has been helpful for her vaginal dryness with intercourse. Review of Systems The patient has lost 15 pounds over the last year. The weight loss has been intentional. She has lost weight, but states she has gained some of it back. She denies respiratory, cardiac, or G.I. problems. 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 She was once told she had a uterine fibroid. History of Any Multi-Drug Resistant Organisms: None Reported Past Surgical History: Joint Replacement, Orthopedic Surgery, Tonsillectomy, Tubal Ligation Additional Past Surgical History / Comment(s): right knee replaced. Right Wrist surgery. Past Anesthesia/Blood Transfusion Reactions: No Reported Reaction Past Psychological History: No Psychological Hx Reported Smoking Status: Never smoker Past Alcohol Use History: Occasional (0-2 per month) Past Drug Use History: None Reported Additional History: She has been since 1973 and is sexually active. 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 - Past Family History Mother Family Medical History: Deep Vein Thrombosis (DVT) Additional Family Medical History / Comment(s): Maternal grandfather had gastric cancer. Father Family Medical History: COPD, Coronary Artery Disease (CAD) Brother(s) Family Medical History: Diabetes Mellitus Medications and Allergies Home Medications Medication Instructions Recorded Confirmed Type Cholecalciferol [Vitamin D3] 2,000 unit PO DAILY 06/01/16 07/03/22 History Levothyroxine Sodium [Synthroid] 88 mcg PO DAILY 06/01/16 07/03/22 History Multivit-Min/Iron/Folic/Lutein 1 tab PO DAILY 06/01/16 07/03/22 History [Centrum Silver Women Tablet] Vitamin B Complex 1 cap PO DAILY 06/01/16 07/03/22 History Ibuprofen [Motrin] 800 mg PO BID PRN 12/02/18 07/03/22 History Calcium/Magnesium/Zinc 1 each PO DAILY 06/02/19 07/03/22 History [Fcvxgsn-Vksmmgidn-Cpec Tablet] Estradiol Cream [Estrace Cream 1 gm VAGINAL DIRECTED #1 tube 06/28/20 07/03/22 Rx 0.01%] Allergies Allergy/AdvReac Type Severity Reaction Status Date / Time Tetracyclines AdvReac always Verified 07/03/22 09:39 causes yeast infections zinc AdvReac Unknown Verified 07/03/22 09:39 Exam Vital Signs Temp Pulse Resp BP Pulse Ox 07/03/22 09:41 98.4 F 63 17 133/79 98 Intake and Output 07/02/22 07/03/22 07/03/22 22:59 06:59 14:59 Other: Weight 81.647 kg Height 5 feet 3 inches, weight 180 pounds, BMI 31.9. This is a well-developed well-nourished white female who is alert and oriented times 3 in no acute distress. HEENT: Within normal limits. NECK: Supple without mass or thyromegaly. CHEST AND LUNGS: Clear to auscultation. HEART: Regular rate and rhythm. BREASTS: Are without mass or discharge. AXILLARY EXAM: Negative for adenopathy. BACK: Negative for CVA tenderness. ABDOMEN: Soft, nontender, without palpable masses. PELVIC EXAM: Normal external genitalia with mild atrophy. Cervix and vagina appear normal with mild atrophy. There is no unusual discharge. There is a stable grade 2 rectocele. The mucosa overlying the rectocele appears normal. There is minimal uterine prolapse and minimal cystocele. The uterus is midposition, nongravid size and nontender. There are no palpable adnexal masses or tenderness. RECTAL EXAM: Rectovaginal exam is negative for mass or tenderness and is negative for occult blood. Rectal exam does confirm the rectocele. EXTREMITIES: Nontender. IMPRESSION: 1. 79-year-old menopausal female with a symptomatic grade 2 rectocele which is stable. 2. Doing well on vaginal estrogen cream for vaginal dryness associated with sexual intercourse. 3. History of osteopenia. PLAN: 1. Pap smear was performed. If this is negative, we will plan on discontinuing Pap smears since we will now have 3 consecutive negative Pap smears within a 10 year period. 2. Self breast awareness was discussed with the patient. We have also discussed symptoms associated with inflammatory breast cancer. 3. Screening mammogram was done today. 4. Osteoporosis prevention was discussed. I have stressed the importance of adequate calcium, vitamin D and regular exercise. Recommended amounts of calcium and vitamin D were also discussed. Bone density has been done today. 5. Continue estradiol vaginal cream, 1 g 2 times weekly. The electronic prescription will be sent to [facility] pharmacy on . 6. The patient was advised to return in 1-2 years for her well woman examination and as needed.
--- NOTE | 2022-07-03 10:56 | BD ---
EXAMINATION TYPE: Axial Bone Density DATE OF EXAM: 07/03/2022 CLINICAL HISTORY: 71 years old Female. ICD-10 CODE: Z78.0 POST MENOPAUSAL WITHOUT HRT Comparison: Prior DEXA bone scan June 28, 2020 Height: 63 Weight: 180 FRAX RISK QUESTIONS: History of Fracture in Adulthood: yes Secondary Osteoporosis: yes 3. Menopause before 45: yes RISK FACTORS HISTORY OF: History of Wrist Fracture: yes rt When: 2019 Surgery to Wrist (right): yes When: 2019 Family History of Osteoporosis: no Active: yes Diet low in dairy products/other sources of calcium: no Postmenopausal woman: yes Lost more than 2 inches in height since high school: yes was 68 MEDICATIONS: Thyroid Medications: yes Which medication: Synthroid How Lon+ years Additional Medications: yes calcium, fungal infection nails, EXAM MEASUREMENTS: Bone mineral densitometry was performed using the [employer] System. Bone mineral density as measured about the Lumbar spine is: ----- L1-L4(G/cm2): 1.301 T Score Values are as follows: ----- L1: 0.1 ----- L2: 0.3 ----- L3: 1.0 ----- L4: 3.3 ----- L1-L4: 1.0 Z Score Values are as follows: ----- L1: 1.2 ----- L2: 1.4 ----- L3: 2.1 ----- L4: 4.4 ----- L1-L4: 2.1 Bone mineral density has: Decreased -0.6% since study of: 06/28/2020 Bone mineral density about the R hip (g/cm2): 0.922 Bone mineral density about the L hip (g/cm2): 0.875 T Score values are as follows: -----R Neck: -1.7 -----L Neck: -1.7 -----R Total: -0.7 -----L Total: -1.1 Z Score values are as follows: -----R Neck: -0.3 -----L Neck: -0.3 -----R Total: -0.7 -----L Total: -1.1 Bone mineral density has: Increased 3.5% since study of: 06/28/2020 FRAX%s: The graph provided illustrates a 16.1 % chance for a major osteoporotic fx and a 2.6 % chance for the hips probability for fx in 10 years time. IMPRESSION: Osteopenia (T Score between -2.5 and -1). There is slightly increased risk of fracture and the patient may be considered for treatment. Re-Screen 2-5 years. NOTE: T-SCORE=SD OF THE YOUNG ADULT MEAN.
--- NOTE | 2022-07-04 09:46 | MM ---
Reason for Exam: Screening (asymptomatic). Last mammogram was performed 2 year(s) and 0 month(s) ago. Patient History: Menarche at age 14. First Full-Term at age 24. Postmenopausal. Currently using Estrogen, for 6 months. Currently using Progesterone, for 6 months. Risk Values: Rupinder 5 year model risk: 1.5%. NCI Lifetime model risk: 4.5%. Prior Study Comparison: 06/02/2019 Bilateral Screening Mammogram, [facility]. 02/09/2020 Left Diagnostic Mammogram, [facility]. 06/28/2020 Bilateral Diagnostic Mammogram, [facility]. Tissue Density: There are scattered fibroglandular densities. Findings: Analyzed By CAD. There is no suspicious group of microcalcifications or new suspicious mass in either breast. Overall Assessment: Negative, BI-RAD 1 Management: Screening Mammogram of both breasts in 1 year. A clinical breast exam by your physician is recommended on an annual basis and results should be correlated with mammographic findings. [facility] will attempt to contact patient to return for supplemental views and ultrasound if indicated. Electronically signed and approved by: Arjun Bruce DO
== END | disposition home or self-care (01) ==
LOC: RADMAMWWP 08:51
PROVIDERS: ATTEND Obstetrics & Gynecology
DX: Z12.31 Encounter for screening mammogram for malignant neoplasm of breast (principal); M85.89 Other specified disorders of bone density and structure, multiple sites; Z78.0 Asymptomatic menopausal state
CPT/HCPCS: 77067; 77080